=== PATIENT | female | born 1940 | race Caucasian/White ===

== ENCOUNTER 2018-01-11 06:16 | Inpatient (IN) | payer MEDICARE ==
[2018-01-07 11:09] LABS: Basophils # (auto) 0 uL; Basophils % (auto) 0.9 % (0.0-2.0); Eosinophils # (auto) 0.1 uL; Eosinophils % (auto) 1.6 % (0.0-7.0); Hematocrit 42.8 % (36.0-46.0); Hemoglobin 14.7 g/dL (12.2-16.2); Lymphocytes # (auto) 1.4 uL; Lymphocytes % (auto) 25.6 % (10.0-50.0); Mean Corpuscular Hemoglobin 31.5 pg (28.0-32.0); Mean Corpuscular Hgb Conc. 34.3 g/dL (32.0-36.0); Mean Corpuscular Volume 91.8 fL (80.0-100.0); Monocytes # (auto) 0.6 uL; Monocytes % (auto) 11.6 % (0.0-12.0); Neutrophils # (auto) 3.3 uL; Neutrophils % (auto) 60.3 % (37.0-80.0); Platelet Count (auto) 300 10^3/uL (140-450); Red Blood Cells 4.67 10^6/uL (4.0-5.20); Red Cell Distribution Width 14.2 % (11.8-14.3); White Blood Cell 5.5 10^3/uL (4.4-10.8)
[2018-01-07 11:11] LABS: Urine Bacteria NONE SEEN /hpf (None Seen); Urine Blood Negative /uL (Negative); Urine Specific Gravity 1.011 (1.001-1.035); Urine WBC <1 /hpf (0 - 5)
[2018-01-07 11:22] LABS: INR 1.06 (0.9-1.15); Partial Thromboplastin Time 28.6 sec (22.64-33.71); Prothrombin Time 11.6 sec (9.37-12.3)
[2018-01-07 11:40] LABS: Albumin 4.1 g/dL (3.4-5.0); BUN/Creatinine Ratio 16.2; Bilirubin, Total 0.5 mg/dL (0.2-1.0); Calcium 8.9 mg/dL (8.5-10.1); Potassium 4.4 mmol/L (3.5-5.1); Total Protein 7.8 g/dL (6.4-8.2)
[~2018-01-11] VITALS: Ht 162.6 cm; Wt 72.7 kg
[~2018-01-11 06:16] MED LIST: HYDR-4683 PO; LORA1TAB12 PO; ZOLP5TAB5 PO
[2018-01-11] MEDS ORDERED: ceFAZolin 1GM/50ML 50 ML IV ONE ×2 (06:34→07:17)
[2018-01-11] MEDS ORDERED: BUPIVACAINE W/ EPINEPH 0.25% INJ 50ML MDV ONE (06:42)
[2018-01-11] MEDS ORDERED: MORPHINE SULF(PF) 0.5MG/ML 10ML VIAL ONE ×2 (06:45→07:28)
[2018-01-11] MEDS ORDERED: VANCOMYCIN HCL 1000 MG VL ONE (06:47)
[2018-01-11] MEDS ORDERED: KETOROLAC TROMETH 30 MG/ML 1ML VIAL ONE (06:47)
[2018-01-11] MEDS ORDERED: PREGABALIN CAPSULE 75 MG CAP PO ONE (07:15)
[2018-01-11] MEDS ORDERED: ceFAZolin 1GM 2 GM in D5W 5% 100 ML IV ONE (07:15)
[2018-01-11] MEDS ORDERED: ACETAMINOPHEN IV 1000 MG/100ML (10MG/ML) IV ONE (07:15)
[2018-01-11] MEDS ORDERED: CELECOXIB 100 MG CAP PO ONE (07:15)
[2018-01-11] MEDS ORDERED: ACETAMINOPHEN IV 100 ML IV ONE (07:17)
[2018-01-11] MEDS ORDERED: CELECOXIB 100 MG CAP ONE (07:18)
[2018-01-11] MEDS ORDERED: PREGABALIN CAPSULE 75 MG CAP ONE (07:19)
[2018-01-11] MEDS ORDERED: LIDOCAINE 1% (LOCAL ANESTH.) PF 5ml SDV ONE (07:23)
[2018-01-11] MEDS ORDERED: ROPIVACAINE 0.5% (5MG/ML) 20ML AMPULE IJ ONE (07:24)
[2018-01-11] MEDS ORDERED: LIDOCAINE W/ EPINEPHRINE 2% INJ 20ML VIAL ONE (07:25)
[2018-01-11] MEDS ORDERED: MIDAZOLAM HCL 1MG/1ML-2 ML VIAL ONE ×2 (07:28→07:34)
[2018-01-11] MEDS ORDERED: PROPOFOL 10 MG/ML 20 ML IV ONE ×2 (07:57→08:53)
[2018-01-11] MEDS ORDERED: TRANEXAMIC ACID 1,000 mg/10ml INJ VIAL ONE (08:07)
[2018-01-11] MEDS ORDERED: METOCLOPRAMIDE HCL 5MG/ml INJ 2ml VIAL IV ONE (08:15)
[2018-01-11] MEDS ORDERED: ePHEDrine SULFATE 50 MG/ML AMP IV PRN (08:30)
[2018-01-11] MEDS ORDERED: ONDANSETRON HCL 4 MG/2 ML VIAL IV ONE (08:30)
[2018-01-11] MEDS ORDERED: MORPHINE SULFATE 4 MG/ML SYR/VIAL IV PRN ×2 (08:30→10:30)
[2018-01-11] MEDS ORDERED: DEXAMETHASONE SOD PHOS 10MG/1ML VIAL INJ IV PRN (08:30)
[2018-01-11] MEDS ORDERED: KETOROLAC TROMETH 30 MG/ML 1ML VIAL IV PRN (08:30)
[2018-01-11] MEDS ORDERED: NALOXONE HCL 0.4 MG/ML VIAL IV PRN (08:30)
[2018-01-11] MEDS ORDERED: ONDANSETRON HCL 4 MG/2 ML VIAL IV PRN (08:30)
[2018-01-11] MEDS: LACTATED RINGER'S 1,000 ML IV SCH ×2 (10:21→19:58)
[2018-01-11] MEDS ORDERED: PATIENTS OWN MEDICATION (Lorazepam 1 TAB) PO PRN (10:30)
[2018-01-11] MEDS ORDERED: MORPHINE SULF INJ 2 MG/ML SYRINGE 1ML IV PRN (10:30)
[2018-01-11] MEDS ORDERED: OXYCODONE W/ ACETAMINOPHEN 5/325MG TABLET PO PRN (10:30)
[2018-01-11] MEDS ORDERED: ZOLPIDEM TARTRATE 5 MG TAB PO PRN (10:30)
[2018-01-11] MEDS ORDERED: ACETAMINOPHEN 325 MG TAB PO PRN (10:30)
[2018-01-11] MEDS ORDERED: NITROGLYCERIN 0.4 MG SL TAB SL PRN (10:30)
[2018-01-11] MEDS ORDERED: LORazepam 0.5 MG TAB PO PRN (10:45)
[2018-01-11] MEDS: ceFAZolin 1GM/50ML 50 ML IV SCH ×3 (13:20→23:10)
[2018-01-11] MEDS: KETOROLAC TROMETH 30 MG/ML 1ML VIAL IV SCH ×2 (14:00→21:39)
[2018-01-11 15:15] VITALS: BP 119/70
[2018-01-11] MEDS: ONDANSETRON HCL 4 MG/2 ML VIAL IV PRN ×2 (15:58→17:02)
[2018-01-11 16:38] VITALS: BP 105/59
[2018-01-11] MEDS ORDERED: METOCLOPRAMIDE HCL 5MG/ml INJ 2ml VIAL IV PRN (19:45)
[2018-01-11 20:00] VITALS: BP 142/69
[2018-01-11 21:30] VITALS: BP 142/69
[2018-01-11] MEDS: DOCUSATE SOD 100 MG CAP PO SCH (21:39)
[2018-01-11] MEDS: oxyCODONE ER 10 MG TAB PO SCH (21:52)
[2018-01-12] VITALS (7 sets, daily range): BP systolic 87–114; BP diastolic 52–64
[2018-01-12] MEDS: KETOROLAC TROMETH 30 MG/ML 1ML VIAL IV SCH ×3 (05:12→21:02)
[2018-01-12 05:55] LABS: Basophils # (auto) 0 uL; Basophils % (auto) 0.2 % (0.0-2.0); Eosinophils # (auto) 0.1 uL; Eosinophils % (auto) 1.3 % (0.0-7.0); Hematocrit 36.3 % (36.0-46.0); Hemoglobin 12.4 g/dL (12.2-16.2); Lymphocytes # (auto) 0.7 uL; Lymphocytes % (auto) 9.7 % (10.0-50.0); Mean Corpuscular Hemoglobin 31.7 pg (28.0-32.0); Mean Corpuscular Hgb Conc. 34.2 g/dL (32.0-36.0); Mean Corpuscular Volume 92.6 fL (80.0-100.0); Monocytes # (auto) 0.9 uL; Neutrophils # (auto) 5.3 uL; Neutrophils % (auto) 75.8 % (37.0-80.0); Platelet Count (auto) 217 10^3/uL (140-450); Red Blood Cells 3.92 10^6/uL (4.0-5.20); Red Cell Distribution Width 14.1 % (11.8-14.3)
[2018-01-12 06:15] LABS: Albumin 3.2 g/dL (3.4-5.0); BUN/Creatinine Ratio 16.1; Calcium 8.9 mg/dL (8.5-10.1); Potassium 4.8 mmol/L (3.5-5.1)
[2018-01-12 06:17] LABS: Bilirubin, Total 0.6 mg/dL (0.2-1.0); Total Protein 6.2 g/dL (6.4-8.2)
[2018-01-12] MEDS: ENOXAPARIN SOD 40 MG/0.4 ML SYRINGE SC SCH (09:03)
[2018-01-12] MEDS: DOCUSATE SOD 100 MG CAP PO SCH ×2 (09:03→21:02)
[2018-01-12] MEDS: oxyCODONE ER 10 MG TAB PO SCH ×2 (09:03→21:02)
[2018-01-12] MEDS: OXYCODONE W/ ACETAMINOPHEN 5/325MG TABLET PO PRN (15:34)
[2018-01-12] MEDS: LACTATED RINGER'S 1,000 ML IV SCH (19:41)
[2018-01-13] MEDS: OXYCODONE W/ ACETAMINOPHEN 5/325MG TABLET PO PRN ×2 (02:06→14:41)
[2018-01-13 05:21] VITALS: BP 111/66
[2018-01-13] MEDS: KETOROLAC TROMETH 30 MG/ML 1ML VIAL IV SCH (05:39)
[2018-01-13 07:44] VITALS: BP 128/59
[2018-01-13] MEDS: oxyCODONE ER 10 MG TAB PO SCH ×2 (09:36→21:41)
[2018-01-13] MEDS: DOCUSATE SOD 100 MG CAP PO SCH ×2 (09:36→21:41)
[2018-01-13] MEDS: ENOXAPARIN SOD 40 MG/0.4 ML SYRINGE SC SCH (09:37)
[2018-01-13] MEDS: ONDANSETRON HCL 4 MG/2 ML VIAL IV PRN ×2 (09:42→21:46)
[2018-01-13 11:47] VITALS: BP 111/61
[2018-01-13] MEDS: LACTATED RINGER'S 1,000 ML IV SCH (12:21)
[2018-01-13 16:48] VITALS: BP 145/70
[2018-01-13 22:15] VITALS: BP 153/69
[2018-01-14] MEDS: LACTATED RINGER'S 1,000 ML IV SCH (05:01)
[2018-01-14 05:42] VITALS: BP 116/68
[2018-01-14 09:09] VITALS: BP 128/72
[2018-01-14] MEDS: ENOXAPARIN SOD 40 MG/0.4 ML SYRINGE SC SCH (09:59)
[2018-01-14] MEDS: DOCUSATE SOD 100 MG CAP PO SCH (10:00)
[2018-01-14] MEDS: oxyCODONE ER 10 MG TAB PO SCH (10:00)
[2018-01-14] MEDS: ONDANSETRON HCL 4 MG/2 ML VIAL IV PRN (10:09)
[2018-01-14 13:37] VITALS: BP 124/74
[2018-01-14 13:47] VITALS: BP 124/74
== END 2018-01-14 14:47 | disposition home health service (06) | DRG 470 ==
LOC: SUR 06:16 → TELE-EAST 06:17
PROVIDERS: ADMIT Orthopaedic Surgery Adult Reconstructive Orthopaedic Surgery; ATTEND Orthopaedic Surgery Adult Reconstructive Orthopaedic Surgery
PROC: 8E0YXBG Computer Assisted Procedure of Lower Extremity, With Computerized Tomography (ICD-10-PCS; 2018-01-11)
PROC: 0SRD0J9 Replacement of Left Knee Joint with Synthetic Substitute, Cemented, Open Approach (ICD-10-PCS; principal; 2018-01-11 07:29)
DX: M17.12 Unilateral primary osteoarthritis, left knee (principal)
CPT/HCPCS: 36415; 73560; 80053; 81001; 85025; 85610; 85730; 86850; 86900; 86901; 97110; 97116; 97163; 97530; C1713; C1776; J0131; J0690; J1885; J2250; J2405; J2704; J7060